=== PATIENT | female | born 1965 | race African-American/Black ===

== ENCOUNTER 2016-11-27 09:30 | Day surgery (SDC) | payer OTHER ==
[2016-11-22 15:07] VITALS: BMI 38.8
[2016-11-27] MEDS ORDERED: PROPOFOL 20 ML ONE ×2 (09:41)
[2016-11-27 12:34] VITALS: TEMP 98.1
[2016-11-27 13:12] VITALS: BP 123/73; PULSE 78
--- NOTE | 2016-11-30 16:53 | PATH ---
Surgical Pathology Report Patient Name: MATI SORIANO [facility]. Rec. #: [id number] /Age/Gender: 1965 (Age: 51) / F Account: [id number] Location: [facility]-ENDOSCOPY Taken: 11/27/2016 Received: 11/27/2016 Reported: 11/30/2016 Physicians: Raymon Grimaldo M.D. Specimen(s) Received A: BX DUODENUM B: BX ANTRUM Clinical History Anemia, rule out colon cancer Iron deficiency anemia Final Diagnosis A. DUODENUM, BIOPSY: DUODENAL MUCOSA WITH NO PATHOLOGIC FINDINGS. B. ANTRUM, BIOPSY: MILD CHRONIC GASTRITIS. IMMUNOSTAIN IS NEGATIVE FOR H. PYLORI ORGANISMS. Electronically Signed Stephanie Diaz M.D. Gross Description A. Received in formalin, labeled "duodenum" are 3 metzger, irregular portions of soft tissue ranging from 0.1-0.5 cm. in greatest dimension. The specimens are submitted in toto in one cassette. B. Received in formalin, labeled "antrum" are 3 metzger, irregular portions of soft tissue ranging from 0.1-0.5 cm. in greatest dimension. The specimens are submitted in toto in one cassette. 11/29/2016 saudi11/29/2016
== END 2016-11-27 13:10 | disposition home or self-care (01) ==
LOC: FASU-ENDO 09:30
PROVIDERS: ATTEND Internal Medicine Gastroenterology
PROC: 0DB68ZX Excision of Stomach, Via Natural or Artificial Opening Endoscopic, Diagnostic (ICD-10-PCS; 2016-11-27)
PROC: 0DJD8ZZ Inspection of Lower Intestinal Tract, Via Natural or Artificial Opening Endoscopic (ICD-10-PCS; principal; 2016-11-27 11:50)
PROC: 0DB98ZX Excision of Duodenum, Via Natural or Artificial Opening Endoscopic, Diagnostic (ICD-10-PCS; 2016-11-27 11:50)
DX: D50.9 Iron deficiency anemia, unspecified (principal); K29.50 Unspecified chronic gastritis without bleeding
CPT/HCPCS: 88305-TC; 88342-TC

== ENCOUNTER 2018-08-20 10:13 | Day surgery (SDC) | payer OTHER ==
--- NOTE | 2018-08-12 11:11 | HP ---
Admitting History and Physical - Primary Care Physician PCP: Saleem Zendejas - Admission Chief Complaint: Right axillary mass History of Present Illness: 52 year old postmenapausal female with mutiple medical probelemns with long standing H/O right axillary nodule that has recently increased in size. CT scan showed mutiole small axillary lymph nodes although you can see a large lipoma in the axilla. mammogram WNL US showed bilateral nonspecific adenopathy and an isodense area in right axilla consistent with lipoma History Source: Patient Limitations to Obtaining History: No Limitations - Past Medical History [employer]: Yes: Other (FREEMAN) Cardiovascular: Yes: CAD, HTN, Hyperlipdemia, [place] (x3 ), Other (ANGINA) Pulmonary: Yes: Asthma, Sleep Apnea Psych: Yes: Bipolar Endocrine: Yes: Diabetes Mellitus (insulin dependant/ polyneuropathy), Other ( thyroid nodule) - Past Surgical History Past Surgical History: Yes: Hysterectomy (GRISELDA fibroids), Tubal Ligation Additional Past Surgical History: septoplasty arthroscopy knee reconstruction H/O foot cellulitis - Smoking History Smoking history: Never smoked Have you smoked in the past 12 months: No - Alcohol/Substance Use Hx Alcohol Use: Yes (OCCASIONALLY) Home Medications - Allergies Allergies/Adverse Reactions: Allergies Allergy/AdvReac Type Severity Reaction Status Date / Time bee venom protein (honey bee) Allergy Severe Swelling Verified 11/22/16 14:52 nut - unspecified Allergy Severe Swelling Verified 11/22/16 14:52 - Home Medications Home Medications: Ambulatory Orders Exenatide Microspheres [Bydureon Pen] 2 mg SQ WEEKLY 11/22/16 Fluticasone Propionate [Flovent Diskus] 100 mcg IH BID 11/22/16 Glimepiride [Amaryl -] 4 mg PO DAILY 11/22/16 Insulin Degludec [Tresiba Flextouch U-100] 40 unit SQ DAILY 11/22/16 Metoprolol Tartrate 100 mg PO HS 11/22/16 Metoprolol Tartrate 200 mg PO DAILY 11/22/16 Nifedipine ER [Procardia Xl -] 60 mg PO DAILY 11/22/16 Omeprazole 40 mg PO DAILY 11/22/16 Pravastatin Sodium [Pravachol] 40 mg PO HS 11/22/16 Spironolact/Hydrochlorothiazid [Aldactazide 25-25 Tablet] 1 each PO DAILY Valsartan 320 mg PO DAILY 11/22/16 Vitamin C/Biotin [Hair, Skin and Nails Gummies] 1 each PO DAILY 11/22/16 metFORMIN HCL [Metformin HCl ER] 500 mg PO BID 11/22/16 Family Disease History - Family Disease History Family Disease History: CA: Father (AIDS/CRC), Mother (AIDS) Other Family History: pat aunt and uncle CRC Physical Examination Constitutional: Yes: Well Nourished Breast(s): Yes: Other (No palapable masses or suspicious adenopthy Right axillary soft tissue mass palpable 6x 8 cm, breast exam no poalapble densities bilaterally) Problem List - Problems (1) Mass of right axilla Code(s): R22.31 - LOCALIZED SWELLING, MASS AND LUMP, RIGHT UPPER LIMB Assessment/Plan right axillary excision of mass
[2018-08-13 14:46] VITALS: BMI 37.3
[2018-08-20] MEDS ORDERED: oxyCODONE HCL 5 MG TABLET PO PRN ×2 (11:28)
[2018-08-20] MEDS ORDERED: ONDANSETRON 4 MG/2 ML VIAL IVPUSH PRN ×3 (11:28→14:47)
[2018-08-20] MEDS ORDERED: LACTATED RINGERS SOLUTION 1,000 ML IV SCH (11:30)
[2018-08-20] MEDS ORDERED: MIDAZOLAM HCL 2 MG/2 ML SINGLE DOSE VIAL ONE (12:12)
[2018-08-20] MEDS ORDERED: ceFAZolin SODIUM 1 GM VIAL ONE (12:16)
[2018-08-20] MEDS ORDERED: DEXAMETHASONE SOD PHOSPHATE 4 MG/1 ML VIAL ONE (12:53)
[2018-08-20] MEDS ORDERED: ONDANSETRON 4 MG/2 ML VIAL ONE ×2 (12:53→15:30)
[2018-08-20] MEDS ORDERED: LIDOCAINE HCL 1% PRESERVATIVE FREE - 30ML VIAL ONE (13:16)
[2018-08-20] MEDS ORDERED: BUPIVACAINE HCL/PF 2.5 MG/ML - 30 ML VIAL IJ ONE ×2 (13:16→14:25)
[2018-08-20] MEDS ORDERED: PROPOFOL 20 ML ONE (13:50)
[2018-08-20] MEDS ORDERED: KETOROLAC TROMETHAMINE 30 MG/1 ML VIAL IVPUSH PRN (14:47)
[2018-08-20] MEDS ORDERED: DEXTROSE 5%-0.45% SALINE 1,000 ML IV SCH (15:00)
[2018-08-20] MEDS ORDERED: oxyCODONE HCL 5 MG TABLET ONE (16:23)
[2018-08-20 16:56] VITALS: TEMP 98.3
[2018-08-20 17:39] VITALS: BP 120/73; PULSE 68
--- NOTE | 2018-08-20 21:41 | OP ---
DATE OF OPERATION: 08/20/2018 PREOPERATIVE DIAGNOSIS: Right axillary lipoma. POSTOPERATIVE DIAGNOSIS: Right axillary lipoma. PROCEDURE: Excision of right axillary lipoma. ANESTHESIA: General intubated. ATTENDING SURGEON: Imani Zendejas MD BRAKE LINING MAKER: SHARON Singh ESTIMATED BLOOD LOSS: Minimal. COMPLICATIONS: None. DESCRIPTION OF PROCEDURE: Patient was made aware of the risks and benefits of the procedure and consented. She was placed in supine position, and after general anesthesia was induced, the patient was intubated. Curvilinear incision was made in the right axilla. Using blunt and sharp dissection, tissues were dissected down to the axillary fat. There was an obvious lipoma in the axillary fat. However, it interdigitated with axillary lymph nodes; so, this is taken out bluntly and sharply and piecemeal, excising the entire area without removing any lymph nodes. Palpation of the rest of the axilla revealed no suspicious lymph nodes, just large fatty lymph nodes, and no other nodules or evidence of lipoma. The wound was copiously irrigated with normal saline. Hemostasis maintained by electrocautery. The wound was then closed with layers of 2-0, 3-0 Vicryl, followed by running subcuticular 4-0 Monocryl. Dermabond was then applied, and the patient, having tolerated the procedure well, was transferred to the recovery room in excellent condition. IMANI ZENDEJAS M.D. [id number]
== END 2018-08-20 17:42 | disposition home or self-care (01) ==
LOC: FASU 10:13
PROVIDERS: ATTEND Surgery Surgical Oncology
PROC: 0JBD0ZZ Excision of Right Upper Arm Subcutaneous Tissue and Fascia, Open Approach (ICD-10-PCS; principal; 2018-08-20 14:01)
DX: D17.21 Benign lipomatous neoplasm of skin and subcutaneous tissue of right arm (principal); I10 Essential (primary) hypertension; I25.10 Atherosclerotic heart disease of native coronary artery without angina pectoris; E78.5 Hyperlipidemia, unspecified; I25.2 Old myocardial infarction; D64.9 Anemia, unspecified; G47.30 Sleep apnea, unspecified; F31.9 Bipolar disorder, unspecified; E11.42 Type 2 diabetes mellitus with diabetic polyneuropathy; Z79.4 Long term (current) use of insulin; Z79.84 Long term (current) use of oral hypoglycemic drugs; E04.1 Nontoxic single thyroid nodule
CPT/HCPCS: 82962; 88304-TC; 94760